=== PATIENT | male | born 1945 | race African-American/Black ===

== ENCOUNTER 2018-07-28 15:21 | Emergency (ER) | payer MEDICARE, MEDICAID ==
[~2018-07-28] VITALS: Ht 190.5 cm; Wt 100.0 kg
[2018-07-28 15:29] VITALS: BP 120/66
== END 2018-07-28 17:00 | disposition left against medical advice (07) ==
LOC: ER 15:21
DX: Z53.21 Procedure and treatment not carried out due to patient leaving prior to being seen by health care provider (principal)

== ENCOUNTER 2019-03-23 16:41 | Emergency (ER) | payer MEDICARE, MEDICAID ==
[~2019-03-23] VITALS: Ht 190.5 cm; Wt 110.0 kg
[2019-03-23] MEDS ORDERED: DIAZEPAM 5 MG TABLET PO ONE (19:00)
[2019-03-23] MEDS ORDERED: KETOROLAC 60MG/2ML VIAL IM ONE (19:00)
[2019-03-23 20:00] VITALS: BP 126/86
== END 2019-03-23 20:00 | disposition home or self-care (01) ==
LOC: ER 16:41
DX: M25.512 Pain in left shoulder (principal); I10 Essential (primary) hypertension; M19.90 Unspecified osteoarthritis, unspecified site; F17.210 Nicotine dependence, cigarettes, uncomplicated
CPT/HCPCS: 96372; 99283; J1885

== ENCOUNTER 2023-10-18 08:27 | Emergency (ER) | payer MEDICARE, MEDICAID ==
[~2023-10-18] VITALS: Ht 188 cm; Wt 81.0 kg
[2023-10-18 08:36] VITALS: O2SAT 99
[2023-10-18] MEDS ORDERED: GUAI-450 MT (09:15)
[2023-10-18] MEDS ORDERED: AZIT250T12 MT (09:15)
[2023-10-18 10:20] VITALS: BP 138/89; PULSE 87; RESP 16; TEMP 98.2
== END 2023-10-18 10:24 | disposition home or self-care (01) ==
LOC: ER 08:27
DX: J06.9 Acute upper respiratory infection, unspecified (principal); J18.9 Pneumonia, unspecified organism; I10 Essential (primary) hypertension
CPT/HCPCS: 71045; 99283